=== PATIENT | male | born 1950 ===

== ENCOUNTER 2020-09-02 14:41 | Outpatient (REF) | payer MEDICARE, OTHER, SELFPAY ==
--- NOTE | ~2020-09-02 | US_ITS ---
EXAMINATION: US EXTRACRANIAL CAROTID DUPLEX, BILATERAL CLINICAL INFORMATION: Stroke COMPARISON: None TECHNIQUE: Real-time ultrasound and Doppler techniques (integrating B-mode 2-D vascular images, Doppler spectral analysis and color-flow Doppler imaging) were utilized to interrogate the extracranial carotid arteries, the vertebral arteries and proximal subclavian arteries bilaterally. The degree of stenosis is determined by criteria similar to NASCET. FINDINGS: Right Side: 1. There is calcified atherosclerotic plaque seen in the bifurcation/proximal ICA region. 2. The common carotid artery PSV proximally is 93.2 cm/s and distally 63.3 cm/s. 3. The proximal internal carotid artery velocities are 62.1 cm/s systolic and 14.7 cm/s diastolic. 4. The proximal external carotid artery PSV is 62.1 cm/s. 5. The vertebral artery shows antegrade flow. 6. The subclavian artery waveforms are normal. Left Side: 1. There is calcified atherosclerotic plaque seen in the bifurcation/proximal ICA region. 2. The common carotid artery PSV proximally is 85.0 cm/s and distally 73.3 cm/s. 3. The proximal internal carotid artery velocities are 70.3 cm/s systolic and 14.1 cm/s diastolic. 4. The proximal external carotid artery PSV is 65.2 cm/s. 5. The vertebral artery shows antegrade flow. 6. The subclavian artery waveforms are normal. US/US carotid duplex BI IMPRESSION: 1. RIGHT: Minimal, non-hemodynamically significant stenosis of the proximal right internal carotid artery corresponding to a 0-49% stenosis by velocity criteria. 2. LEFT: Minimal, non-hemodynamically significant stenosis of the proximal left internal carotid artery corresponding to a 0-49% stenosis by velocity criteria.
--- NOTE | ~2020-09-02 | XR_ITS ---
EXAMINATION: THORACIC AND LUMBAR SPINE X-RAY CLINICAL INFORMATION: Pain COMPARISON: None TECHNIQUE: 3 views of the thoracic spine including swimmer's view and 5 views of the lumbar spine including bilateral oblique views FINDINGS: Thoracic spine: Bone alignment is normal. No fracture or dislocation is seen. Disc spaces are normal. There is multilevel degenerative spondylosis. There is degenerative spondylosis of the cervical spine. Paraspinal soft tissues are unremarkable. Lumbar spine: Bone alignment is normal. No fracture or dislocation is seen. There is multilevel degenerative spondylosis greatest at L1-L2 and L3-L4. Disc spaces are normal. There is lower lumbar spine at arthritis. No pars defect is seen. There is evidence of atherosclerotic disease. XR/XR lumbar spine 4V min IMPRESSION: Degenerative changes. No fracture or dislocation seen.
--- NOTE | ~2020-09-02 | XR_ITS ---
EXAMINATION: THORACIC AND LUMBAR SPINE X-RAY CLINICAL INFORMATION: Pain COMPARISON: None TECHNIQUE: 3 views of the thoracic spine including swimmer's view and 5 views of the lumbar spine including bilateral oblique views FINDINGS: Thoracic spine: Bone alignment is normal. No fracture or dislocation is seen. Disc spaces are normal. There is multilevel degenerative spondylosis. There is degenerative spondylosis of the cervical spine. Paraspinal soft tissues are unremarkable. Lumbar spine: Bone alignment is normal. No fracture or dislocation is seen. There is multilevel degenerative spondylosis greatest at L1-L2 and L3-L4. Disc spaces are normal. There is lower lumbar spine at arthritis. No pars defect is seen. There is evidence of atherosclerotic disease. XR/XR thoracic spine 2V IMPRESSION: Degenerative changes. No fracture or dislocation seen.
== END 2020-09-02 14:42 | disposition home or self-care (01) ==
LOC: HO.US 14:41
PROVIDERS: Absent Provider Internal Medicine; PCP Internal Medicine; Visit Provider Psychiatry & Neurology Neurology
DX: I63.9 Cerebral infarction, unspecified (principal); G89.29 Other chronic pain
CPT/HCPCS: 72070; 72110; 93880

== ENCOUNTER 2020-10-15 12:44 | Outpatient (REF) | payer MEDICARE, OTHER, SELFPAY ==
--- NOTE | ~2020-10-15 | CT_ITS ---
EXAMINATION: CT HEAD WITHOUT CONTRAST CLINICAL INFORMATION: Stroke COMPARISON: None TECHNIQUE: Contiguous axial imaging was performed from the skull base to vertex without intravenous administration of contrast. This CT examination was performed using dose optimization techniques as appropriate, variously including the following: *Automated exposure control *Adjustment of mA and/or kV according to patient size (this includes techniques or standardized protocols for targeted exams where dose is matched to indication/reason for exam; i.e. extremities or head) *Use of iterative reconstruction technique DLP: 979 mGy-cm FINDINGS: There is no evidence of an extra-axial collection. There is no evidence of intra-axial or extra-axial hemorrhage. There are 2 small left basal ganglia lacunar infarcts, one in the left caudate lobe/anterior limb of the internal capsule and one in the lentiform nucleus/periventricular white matter adjacent to the left lateral ventricle. These appear old. No mass, mass effect or acute infarct is seen. The ventricles and extra-axial CSF spaces are appropriate. Arias-white matter differentiation is normal. Bony structures are normal. Paranasal sinuses, mastoid air cells and middle ears are clear. CT/CT head/brain wo con IMPRESSION: 2 left basal ganglia lacunar infarcts.
== END 2020-10-15 12:45 | disposition home or self-care (01) ==
LOC: HO.CT 12:44
PROVIDERS: Visit Provider Psychiatry & Neurology Neurology
DX: I63.9 Cerebral infarction, unspecified (principal)
CPT/HCPCS: 70450

== ENCOUNTER 2021-06-17 13:28 | Outpatient (REF) | payer MEDICARE, MEDICAID, SELFPAY ==
--- NOTE | 2021-06-18 15:13 | MHC.AU.ANO ---
Adult Audiological Evaluation Date of Visit: 06/17/21 Reason for Appointment: Patient has been experiencing significant hearing difficulty. He is not able to follow along when conversation is at a normal volume. Does patient feel they have a hearing loss?: Yes If Yes, Which Ear?: Both Ears Has hearing been tested previously?: No Ear History: Recent Ear Pain: None Reported Recent Ear Infections: None Reported Bothersome Tinnitus/Ringing/Noises in Ears: Both Ears Medical History: Medical History: Diabetes, Heart Problems, High Blood Pressure Otoscopy: Right Ear: Unremarkable Left Ear: Unremarkable Tympanometry: Tympanometry performed due to: To assess integrity of the middle ear system Right Ear: Reduced Middle Ear Compliance (Type As) Left Ear: Reduced Middle Ear Compliance (Type As) Hearing Evaluation: Transducer(s) Used: Insert Earphones Method: Conventional Audiometry Stimuli Used: Pure Tones Right Ear: Description of Hearing: Moderate to profound sensorineural hearing loss Left Ear: Description of Hearing: Moderate to profound sensorineural hearing loss Speech Recognition Threshold (SRT): Method Used: Recorded Lists Stimuli Used: Q[place] Trisyllable Words Right Ear: 65 dBHL Left Ear: 70 dBHL Word Discrimination: Method: Recorded Lists Word Lists Used: Lista Bisil?bica (Q[place]) Right Ear: 60% at 95 dBHL Left Ear: 60% at 100 dBHL Recommendations: Audiological re-evaluation in one year. Patient is a candidate for hearing aids. At this time, our clinic is unable to accept the hearing aid benefit from the patient's insurance. It is recommended the patient contact his insurance provider to inquire about his hearing aid benefits and find participating clinics. Diagnosis: Primary Diagnosis: H90.3 Bilateral Sensorineural Hearing Loss Signature: Provider: Eder Yang, [facility]
== END 2021-06-17 13:29 | disposition home or self-care (01) ==
LOC: HO.SH 13:28
PROVIDERS: Visit Provider Internal Medicine
DX: H91.93 Unspecified hearing loss, bilateral (principal)
CPT/HCPCS: 92557; 92567

== ENCOUNTER 2023-02-22 08:07 | Outpatient (REF) | payer MEDICARE, MEDICAID, SELFPAY ==
[2023-02-22 14:57] LABS: MANUAL DIFF FLAG NO
[2023-02-22 14:58] LABS: Basophils Percent Auto 0.6 % (0-2); Eosinophils Absolute Auto 0.2 X10*3/uL (0.0-0.4); Eosinophils Percent Auto 2.8 % (0-4); Hematocrit 44.5 % (42.0-52.0); Hemoglobin 14.9 g/dl (14.0-18.0); Imm Gran Abs Auto 0.02 X10*3/uL (0.00-0.03); Imm Gran Pct Auto 0.3 % (0.0-0.4); Lymphocytes Absolute Auto 2.3 X10*3/uL (1.2-4.9); Lymphocytes Percent Auto 35.1 % (20-40); Mean Corpuscular HGB Conc 33.5 g/dl (31.0-36.0); Mean Corpuscular Hemoglobin 30.7 pg (27.0-33.0); Mean Corpuscular Volume 91.8 fL (80.0-98.0); Mean Platelet Volume 11.9 fL (9.4-12.4); Monocytes Absolute Auto 0.6 X10*3/uL (0.1-1.2); Monocytes Percent Auto 9.8 % (2-11); Neutrophils Absolute Auto 3.4 x10*3/uL (2.0-8.3); Neutrophils Percent Auto 51.4 % (45-73); Platelet Count 193 X10*3/uL (160-400); Red Blood Count 4.85 X10*6/uL (4.60-5.80); Red Cell Distribution Width 12.1 % (11.0-16.0); White Blood Count 6.5 X10*3/uL (4.8-10.8)
[2023-02-22 15:20] LABS: Alanine Aminotransferase 18 U/L (0-40); Albumin Level 4.6 g/dL (3.5-5.0); Alkaline Phosphatase 102 U/L (39-117); Anion Gap 15 (12-20); Aspartate Amino Transferase 20 U/L (5-37); Bilirubin Total 0.7 mg/dL (0.0-1.0); Blood Urea Nitrogen 21 mg/dL (9-16); Calcium 10.3 mg/dL (8.4-10.2); Carbon Dioxide 26 mmol/L (22-29); Chloride 103 mmol/L (96-108); Cholesterol 141 mg/dL (<200); Estimated Glomerular Filt Rate 54; Glucose Fasting 117 mg/dL (60-99); HDL Cholesterol 33 mg/dL (>40); LDL Cholesterol Calculated 76 mg/dL (<100); Potassium 4.2 mmol/L (3.3-5.1); Sodium 140 mmol/L (135-145); Total Protein 8.5 g/dL (6.5-8.0); Triglycerides 160 mg/dL (<150)
[2023-02-22 15:25] LABS: Estimated Average Glucose 128 mg/dL; Hemoglobin A1c % 6.1 % (<6.0)
[2023-02-22 15:34] LABS: Creatinine Urine 129.58 mg/dL; Microalbum/Creatinine Ratio Ur 4.6 ug/mg cr (<30)
[2023-02-22 15:36] LABS: TSH reflex Free T4 2.79 uIU/mL (0.32-4.0)
== END 2023-02-22 08:08 | disposition home or self-care (01) ==
LOC: HO.CHCLDS 08:07
PROVIDERS: Visit Provider Internal Medicine
DX: I10 Essential (primary) hypertension (principal); E78.5 Hyperlipidemia, unspecified; E03.9 Hypothyroidism, unspecified; E11.9 Type 2 diabetes mellitus without complications
CPT/HCPCS: 36415; 80053; 80061; 82043; 82570; 83036; 84443; 85025

== ENCOUNTER 2023-08-30 08:29 | Outpatient (REF) | payer MEDICARE, MEDICAID, SELFPAY ==
[2023-08-30 15:07] LABS: Alanine Aminotransferase 19 U/L (0-40); Albumin Level 4.6 g/dL (3.5-5.0); Alkaline Phosphatase 102 U/L (39-117); Anion Gap 19 (12-20); Aspartate Amino Transferase 22 U/L (5-37); Bilirubin Total 1.1 mg/dL (0.0-1.0); Blood Urea Nitrogen 15 mg/dL (9-16); Calcium 10.2 mg/dL (8.4-10.2); Carbon Dioxide 26 mmol/L (22-29); Chloride 100 mmol/L (96-108); Estimated Glomerular Filt Rate 59; Glucose Fasting 147 mg/dL (60-99); Potassium 3.8 mmol/L (3.3-5.1); Sodium 141 mmol/L (135-145); Total Protein 8.4 g/dL (6.5-8.0)
[2023-08-30 15:22] LABS: Vitamin B12 439 pg/mL (200-900)
[2023-08-30 15:43] LABS: Creatinine Urine 472.03 mg/dL; Microalbum/Creatinine Ratio Ur 38.9 ug/mg cr (<30)
== END 2023-08-30 08:30 | disposition home or self-care (01) ==
LOC: HO.CHCLDS 08:29
PROVIDERS: Visit Provider Internal Medicine
DX: E11.9 Type 2 diabetes mellitus without complications (principal); I10 Essential (primary) hypertension
CPT/HCPCS: 36415; 80053; 82043; 82570; 82607

== ENCOUNTER 2023-11-09 15:42 | Outpatient (REF) | payer MEDICARE, MEDICAID, SELFPAY | END 2023-11-09 15:43 | disposition home or self-care (01) | LOC: HO.SH 15:42 | PROVIDERS: Visit Provider Internal Medicine | DX: Z01.118 Encounter for examination of ears and hearing with other abnormal findings (principal); H90.3 Sensorineural hearing loss, bilateral | CPT/HCPCS: 92552; 92556 ==

== ENCOUNTER 2023-12-09 08:32 | Outpatient (REF) | payer MEDICARE, MEDICAID, SELFPAY ==
[2023-12-09 15:21] LABS: Estimated Average Glucose 128 mg/dL; Hemoglobin A1c % 6.1 % (<6.0)
[2023-12-09 15:23] LABS: Cholesterol 156 mg/dL (<200); HDL Cholesterol 37 mg/dL (>40); LDL Cholesterol Calculated 81 mg/dL (<100); Triglycerides 192 mg/dL (<150)
[2023-12-09 15:28] LABS: TSH reflex Free T4 0.26 uIU/mL (0.32-4.0)
[2023-12-09 16:06] LABS: Free T4 (Free Thyroxine) 0.91 ng/dL (0.71-1.85)
== END 2023-12-09 08:33 | disposition home or self-care (01) ==
LOC: HO.CHCLDS 08:32
PROVIDERS: Visit Provider Internal Medicine
DX: E11.9 Type 2 diabetes mellitus without complications (principal); E03.9 Hypothyroidism, unspecified
CPT/HCPCS: 36415; 80061; 83036; 84439; 84443